=== PATIENT | male | born 1990 | race Caucasian/White ===

== ENCOUNTER 2025-03-30 08:07 | Emergency (ER) | payer BC, OTHER ==
[2025-03-30] MEDS: Ondansetron 4 MG/2 ML SDV IVPUSH ONE (09:10)
[2025-03-30 09:55] LABS: BASOPHILS ABSOLUTE AUTO 0.0 K/mm3 (0.0-0.2); BASOPHILS PERCENT AUTO 0.3 % (0.0-1.0); EOSINOPHILS ABSOLUTE AUTO 0.0 K/mm3 (0.0-0.4); EOSINOPHILS PERCENT AUTO 0.3 % (0.0-6.0); IMMATURE GRAN ABSOLUTE AUTO 0.08 K/mm3 (0.00-0.05); IMMATURE GRAN PERCENT AUTO 0.5 % (0.0-0.4); LYMPHOCYTES ABSOLUTE AUTO 1.4 K/mm3 (1.0-4.8); LYMPHOCYTES PERCENT AUTO 9.6 % (24.0-44.0); MEAN PLATELET VOLUME 10.6 fl (9.4-12.4); MONOCYTES ABSOLUTE AUTO 1.2 K/mm3 (0.0-0.8); MONOCYTES PERCENT AUTO 7.9 % (0.0-8.0); NEUTROPHILS ABSOLUTE AUTO 12.1 K/mm3 (1.8-7.7); NEUTROPHILS PERCENT AUTO 81.4 % (41.0-71.0); NRBC ABSOLUTE 0.00 (0.00-0.02); NRBC PERCENT 0.0 % (0.0-0.2); PLATELET COUNT,PLT 315 K/mm3 (150-400); RED BLOOD CELL COUNT 4.79 M/mm3 (4.52-5.90); WHITE BLOOD CELL COUNT,WBC 14.89 K/mm3 (3.9-11.3)
[2025-03-30 10:06] LABS: INR 1.03
[2025-03-30 10:09] LABS: A/G RATIO 1.3 (1-2); ALANINE AMINOTRANSFERASE,ALT 25.0 U/L (16-63); ASPARTATE AMNIOTRANSFERASE,AST 19.0 U/L (15-37); BILIRUBIN TOTAL 0.8 mg/dL (0.2-1.0); BLOOD UREA NITROGEN,BUN 16.0 mg/dL (7-18); CARBON DIOXIDE,CO2 23.0 mEq/L (21-32); CHLORIDE,CL 105.0 mEq/L (98-107); CREATININE 1.2 mg/dL (0.7-1.3); EST CRCL DRUG DOSING (CG) 92.75 mL/min; ESTIMATED GFR 81.0 mL/min (>60); GLUCOSE RANDOM 95.0 mg/dL (70-99); POTASSIUM,K 3.9 mEq/L (3.5-5.1); PROTEIN TOTAL,TP 7.2 g/dl (6.4-8.2); SODIUM,NA 139.0 mEq/L (136-145)
== END 2025-03-30 10:45 | disposition home or self-care (01) ==
LOC: JD.ED 08:07
DX: S97.111A Crushing injury of right great toe, initial encounter (principal); S97.121A Crushing injury of right lesser toe(s), initial encounter; S92.421A Displaced fracture of distal phalanx of right great toe, initial encounter for closed fracture; S92.531A Displaced fracture of distal phalanx of right lesser toe(s), initial encounter for closed fracture; Z86.16 Personal history of COVID-19; Z90.49 Acquired absence of other specified parts of digestive tract; Z88.8 Allergy status to other drugs, medicaments and biological substances; Z79.899 Other long term (current) drug therapy; W20.8XXA Other cause of strike by thrown, projected or falling object, initial encounter
CPT/HCPCS: 36415; 73660; 80053; 85025; 85610; 96374; 96375; 99283; A9270; J1171; J2405; J7030